=== PATIENT | male | born 1980 | race Two or more races ===

== ENCOUNTER 2020-01-13 11:33 | Inpatient (IN) | payer MEDICAID, OTHER ==
[~2020-01-13] VITALS: Ht 162.6 cm; Wt 83.9 kg
[2020-01-13 12:18] LABS: Basophils # (auto) 0.1 10 ^3/uL (0-0.2); Basophils % (auto) 0.3 % (0.0-2.0); Eosinophils # (auto) 0 10 ^3/uL (0-0.8); Eosinophils % (auto) 0.2 % (0.0-7.0); Hematocrit 46.2 % (41.0-53.0); Hemoglobin 15.2 g/dL (13.5-17.5); Lymphocytes # (auto) 1.2 10 ^3/uL (0.4-5.4); Lymphocytes % (auto) 5.3 % (10.0-50.0); Mean Corpuscular Hemoglobin 29.4 pg (28.0-32.0); Mean Corpuscular Hgb Conc. 32.8 g/dL (32.0-36.0); Mean Corpuscular Volume 89.6 fL (80.0-100.0); Monocytes # (auto) 1.8 10 ^3/uL (0-1.3); Monocytes % (auto) 7.8 % (0.0-12.0); Neutrophils # (auto) 19.5 10 ^3/uL (1.6-8.6); Neutrophils % (auto) 86.4 % (37.0-80.0); Platelet Count (auto) 361 10^3/uL (140-450); Red Blood Cells 5.16 10^6/uL (4.5-5.90); Red Cell Distribution Width 13.4 % (11.8-14.3); White Blood Cell 22.6 10^3/uL (4.4-10.8)
[2020-01-13 12:23] LABS: Urine Bacteria NONE SEEN /hpf (None Seen); Urine Blood Negative /uL (Negative); Urine Mucus FEW (None Seen); Urine Specific Gravity 1.033 (1.001-1.035); Urine WBC 1 /hpf (0 - 3)
[2020-01-13 12:30] LABS: Albumin 3.9 g/dL (3.4-5.0); Calcium 9.3 mg/dL (8.5-10.1); Potassium 3.6 mmol/L (3.5-5.1)
[2020-01-13 12:33] LABS: BUN/Creatinine Ratio 18.5; Bilirubin, Total 0.7 mg/dL (0.2-1.0)
[2020-01-13] MEDS ORDERED: SODIUM CHLORIDE 0.9% 1,000 ML IVB ONE (12:47)
[2020-01-13] MEDS ORDERED: ONDANSETRON HCL 4 MG/2 ML VIAL IV ONE (13:00)
[2020-01-13] MEDS: cefTRIAXone 1GM/50ML D5W 50 ML IV ONE ×2 (13:30→16:49)
[2020-01-13] MEDS ORDERED: MORPHINE SULF INJ 2 MG/ML SYRINGE 1ML IV ONE (13:30)
[2020-01-13] MEDS ORDERED: ceFAZolin 1GM/50ML 50 ML IV ONE ×2 (13:44→15:15)
[2020-01-13 14:05] LABS: INR 1.01 (0.9-1.15); Partial Thromboplastin Time 29.4 sec (23.64-32.05)
[2020-01-13] MEDS ORDERED: LIDOCAINE 1% (LOCAL ANESTH.) PF 5ml SDV ONE (14:16)
[2020-01-13] MEDS ORDERED: SUCCINYLCHOLINE CHLORIDE 20 MG/ML 10ML VIAL IV ONE (14:17)
[2020-01-13] MEDS ORDERED: MIDAZOLAM HCL 1MG/1ML-2 ML VIAL ONE (14:18)
[2020-01-13] MEDS ORDERED: METOCLOPRAMIDE HCL 5MG/ml INJ 2ml VIAL ONE (14:18)
[2020-01-13] MEDS ORDERED: PROPOFOL 10 MG/ML 20 ML IV ONE (14:18)
[2020-01-13] MEDS ORDERED: ROCURONIUM 10MG/ML 10ML VIAL IV ONE (14:19)
[2020-01-13] MEDS ORDERED: fentaNYL CITRATE 100 MCG/2 ML VL ONE (14:27)
[2020-01-13] MEDS ORDERED: NALOXONE HCL 0.4 MG/ML VIAL IV PRN (14:30)
[2020-01-13] MEDS ORDERED: ONDANSETRON HCL 4 MG/2 ML VIAL IV PRN ×2 (14:30→15:45)
[2020-01-13] MEDS ORDERED: HYDROmorphone HCL 2 MG/ML VL IV PRN ×2 (14:30)
[2020-01-13] MEDS ORDERED: ePHEDrine SULFATE 50 MG/ML AMP ONE (14:31)
[2020-01-13] MEDS ORDERED: SODIUM CHLORIDE LOCK 10 ML ONE (14:31)
[2020-01-13] MEDS ORDERED: NEOSTIGMINE 1 MG/ML INJ (10mg/10ML VIAL) ONE (14:59)
[2020-01-13] MEDS ORDERED: GLYCOPYRROLATE 0.2 MG/ML 1ML VIAL ONE (14:59)
[2020-01-13] MEDS ORDERED: metroNIDAZOLE 500MG/100ML 100 ML IV ONE (15:15)
[2020-01-13] MEDS ORDERED: HYDROmorphone HCL 2 MG/ML VL IV ONE (15:15)
[2020-01-13] MEDS ORDERED: SODIUM CHLORIDE 0.9% 1,000 ML IV SCH (15:45)
[2020-01-13] MEDS ORDERED: HYDROcodone-ACET 5/325MG TAB PO PRN (15:45)
--- NOTE | 2020-01-13 15:47 | NUR ---
Med/Surg admit from [facility] LEIVADARIAN admitted to Med/Surg unit after SBAR received from [facility] Barnes. Patient oriented to Adina Kline RN primary RN, unit, room, bed, and unit policies regarding patient care and visiting hours. Medial Incision sites are clean, dry, and intact. Patient placed on bedside oxygen, weighed by bed scale and encouraged to call if they need something. All questions and concerns addressed, patient verbalized understanding.
[2020-01-13 16:39] VITALS: BP 128/74
[2020-01-13] MEDS: D5W/SOD CHL 0.45%/KCL 20MEQ 1,000 ML IV SCH ×2 (16:45→23:35)
[2020-01-13] MEDS: MORPHINE SULF INJ 2 MG/ML SYRINGE 1ML IV PRN (18:06)
--- NOTE | 2020-01-13 18:42 | NUR ---
CLOSING SHIFT NOTE ENDORSED CARE TO LARD BLEACHER RN DORCAS. PATIENT HAS NO S/S OF DISTRESS/SOB OR PAIN AT THIS TIME.
--- NOTE | 2020-01-13 19:30 | NUR ---
OPENING NOTE ASSUMED CARE OF PT. ALERT AND ORIENTED. NO S/S OF SOB/DISTRESS NOTED. SAFETY PRECAUTION IN PLACE. BED SET TO LOWEST POSITION/LOCKED. BEDSIDE RAILS UP X2. CALL LIGHT WITH REACH. INSTRUCTED PT TO CALL FOR ASSISTANCE. UPDATED ON POC. PT VERBALIZED UNDERSTANDING. WILL CONTINUE TO MONITOR.
[2020-01-13 22:00] VITALS: BP 130/71
[2020-01-13] MEDS: ceFAZolin 1GM/50ML 50 ML IV SCH (22:15)
[2020-01-14] MEDS: MORPHINE SULF INJ 2 MG/ML SYRINGE 1ML IV PRN ×3 (02:18→13:56)
--- NOTE | 2020-01-14 04:49 | NUR ---
30ML OF SEROSANGIOUNOUS FLUID DRAINED FROM DENEEN DRAIN.
[2020-01-14 04:51] VITALS: BP 114/65
[2020-01-14] MEDS: ceFAZolin 1GM/50ML 50 ML IV SCH ×3 (05:40→21:40)
[2020-01-14 06:20] LABS: Basophils # (auto) 0 10 ^3/uL (0-0.2); Basophils % (auto) 0.3 % (0.0-2.0); Eosinophils # (auto) 0.1 10 ^3/uL (0-0.8); Eosinophils % (auto) 0.5 % (0.0-7.0); Hematocrit 39.6 % (41.0-53.0); Hemoglobin 13.3 g/dL (13.5-17.5); Lymphocytes # (auto) 1.3 10 ^3/uL (0.4-5.4); Lymphocytes % (auto) 8.6 % (10.0-50.0); Mean Corpuscular Hemoglobin 30.1 pg (28.0-32.0); Mean Corpuscular Hgb Conc. 33.5 g/dL (32.0-36.0); Mean Corpuscular Volume 89.7 fL (80.0-100.0); Monocytes # (auto) 1.4 10 ^3/uL (0-1.3); Monocytes % (auto) 9.4 % (0.0-12.0); Neutrophils # (auto) 12.1 10 ^3/uL (1.6-8.6); Neutrophils % (auto) 81.2 % (37.0-80.0); Nucleated Red Blood Cells % 0.1 %; Platelet Count (auto) 321 10^3/uL (140-450); Red Blood Cells 4.41 10^6/uL (4.5-5.90); Red Cell Distribution Width 13.6 % (11.8-14.3); White Blood Cell 14.9 10^3/uL (4.4-10.8)
--- NOTE | 2020-01-14 06:30 | NUR ---
REGARDING IS: PATIENT PROVIDED WITH INCENTIVE SPIROMETER. PATIENT INSTRUCTED ON USE. RETURN DEMONSTRATION PROVIDED. 500ML OBSERVED.
[2020-01-14 06:37] LABS: Potassium 3.8 mmol/L (3.5-5.1)
[2020-01-14 06:45] LABS: BUN/Creatinine Ratio 12.6; Calcium 8.1 mg/dL (8.5-10.1)
[2020-01-14] MEDS: D5W/SOD CHL 0.45%/KCL 20MEQ 1,000 ML IV SCH ×2 (06:47→17:42)
[2020-01-14 08:29] VITALS: BP 125/71
[2020-01-14 12:25] VITALS: BP 125/74
[2020-01-14 16:24] VITALS: BP 125/67
--- NOTE | 2020-01-14 18:00 | NUR ---
15ML OF SEROSANGUINEOUS FLUID EMPTIED FROM DENEEN DRAIN.
--- NOTE | 2020-01-14 19:30 | NUR ---
Opening Shift Note Assumed care of patient, awake and alert. No S/S of distress/SOB or pain. Instructed on POC and to call for assist PRN, will continue to monitor for changes Q1hr and PRN.
[2020-01-14 21:00] VITALS: BP 120/68
[2020-01-15] MEDS: D5W/SOD CHL 0.45%/KCL 20MEQ 1,000 ML IV SCH ×2 (00:59→10:36)
[2020-01-15 04:56] VITALS: BP 115/66
[2020-01-15] MEDS: ceFAZolin 1GM/50ML 50 ML IV SCH ×3 (05:31→21:30)
--- NOTE | 2020-01-15 05:47 | NUR ---
Emptied 15 cc of serosanguinous fluid from the DENEEN drain. Report will be given to oncoming RN.
[2020-01-15] MEDS: MORPHINE SULF INJ 2 MG/ML SYRINGE 1ML IV PRN (06:41)
[2020-01-15 08:32] VITALS: BP 121/65
[2020-01-15 13:00] VITALS: BP 108/71
[2020-01-15 16:38] VITALS: BP 114/68
--- NOTE | 2020-01-15 18:39 | NUR ---
EMPTIED 15MLS OF SEROSANGUINEOUS FLUID FROM DENEEN DRAIN.
--- NOTE | 2020-01-15 19:00 | NUR ---
OPENING NOTE Received report from day shift RN. Patient is A&O X's 4 with no s/s of distress and reports no pain at this time. Patient's midline abdominal incisions are C/D/I. Patient's abdominal binder is on. DENEEN drain is in place at this time. Educated patient on POC and to use call light when in need of assistance. Patient verbalized understanding. Bed is in lowest/locked position with side rails up X's 2 and call light is within reach of patient. Will continue care.
[2020-01-15 21:00] VITALS: BP 110/58
[2020-01-16] MEDS: MORPHINE SULF INJ 2 MG/ML SYRINGE 1ML IV PRN (03:42)
--- NOTE | 2020-01-16 03:48 | NUR ---
ROUNDS Patient reporting some abdominal pain at this time rated at a 7. Patient requesting pain medication. Will administer as ordered.
--- NOTE | 2020-01-16 04:12 | NUR ---
PAIN REASSESSMENT Patient is resting in bed with eyes closed. No s/s of distress or discomfort. Will continue care.
[2020-01-16 05:00] VITALS: BP 113/67
[2020-01-16 05:40] LABS: Basophils # (auto) 0.1 10 ^3/uL (0-0.2); Basophils % (auto) 0.5 % (0.0-2.0); Eosinophils # (auto) 0.5 10 ^3/uL (0-0.8); Hematocrit 38.9 % (41.0-53.0); Hemoglobin 13.1 g/dL (13.5-17.5); Lymphocytes % (auto) 20.1 % (10.0-50.0); Mean Corpuscular Hemoglobin 30.2 pg (28.0-32.0); Mean Corpuscular Hgb Conc. 33.6 g/dL (32.0-36.0); Mean Corpuscular Volume 89.9 fL (80.0-100.0); Monocytes # (auto) 1.1 10 ^3/uL (0-1.3); Monocytes % (auto) 11.7 % (0.0-12.0); Neutrophils # (auto) 6.1 10 ^3/uL (1.6-8.6); Neutrophils % (auto) 62.7 % (37.0-80.0); Nucleated Red Blood Cells % 0.1 %; Platelet Count (auto) 322 10^3/uL (140-450); Red Blood Cells 4.33 10^6/uL (4.5-5.90); Red Cell Distribution Width 13.4 % (11.8-14.3); White Blood Cell 9.8 10^3/uL (4.4-10.8)
[2020-01-16] MEDS: ceFAZolin 1GM/50ML 50 ML IV SCH (06:30)
--- NOTE | 2020-01-16 06:44 | NUR ---
DENEEN DRAIN emptied about 20 cc of serosanguinous fluid from the DENEEN drain. Report will be given to the oncoming RN.
--- NOTE | 2020-01-16 07:00 | NUR ---
OPENING SHIFT NOTE Assumed care of patient from night coordinator RN. Patient is alert and oriented x4, no signs of distress noted, patient denies pain. Patient was updated on the plan of care and verbalized understanding. Patient has an abdominal binder, three midline abdominal incisions noted with a DENEEN drain, No drainage noted. Bed is locked, in the lowest position, side rails up x2 and call light is in reach. Patient was encouraged to call for assistance as needed.
[2020-01-16 09:00] VITALS: BP 116/69
[2020-01-16 13:00] VITALS: BP 105/71
[2020-01-16 13:17] VITALS: BP 105/71
--- NOTE | 2020-01-16 13:46 | NUR ---
DISCHARGE Discharge instructions given as ordered. Encourage to follow up with PMD as instructed. All questions and concerns addressed. Patient verbalized understanding. Medication reconciliation form completed and copy given to patient. IV removed with catheter intact, pressure dressing applied. Patient taken to vehicle via wheelchair with all personal belongings, accompanied by staff and family member. No distress noted at time of departure.
== END 2020-01-16 13:46 | disposition home or self-care (01) | DRG 854 ==
LOC: ER 11:33 → WEST WING 11:34
PROVIDERS: ADMIT Internal Medicine; ATTEND Internal Medicine
PROC: 0DTJ4ZZ Resection of Appendix, Percutaneous Endoscopic Approach (ICD-10-PCS; principal; 2020-01-13 14:17)
DX: A41.9 Sepsis, unspecified organism (principal); K35.80 Unspecified acute appendicitis; E66.9 Obesity, unspecified; F17.210 Nicotine dependence, cigarettes, uncomplicated; K57.90 Diverticulosis of intestine, part unspecified, without perforation or abscess without bleeding; Z82.49 Family history of ischemic heart disease and other diseases of the circulatory system; Z68.31 Body mass index [BMI] 31.0-31.9, adult
CPT/HCPCS: 36415; 74176; 80048; 80053; 81001; 82150; 83690; 84132; 85025; 85610; 85730; 86850; 86900; 86901; 88302; 96360; G0378; J0330; J0690; J0696; J2250; J2704; J3490